=== PATIENT | female | born 1980 | race Caucasian/White ===

== ENCOUNTER 2018-06-15 16:47 | Emergency (ER) | payer OTHER ==
[2018-06-15 16:52] VITALS: BMI 32.3
--- NOTE | 2018-06-15 16:54 | PDOC ---
Rapid Medical Evaluation Time Seen by Provider: 06/15/18 16:48 Medical Evaluation: 06/15/18 16:48 I have performed a brief in-person evaluation of this patient. The patient presents with a chief complaint of: abdominal pain today. LMP last month, pt sent from L&D told them she was 7 months however pt is NOT . History of Bipolar and HTN. PT not compliant with medications. Pertinent physical exam findings:pt answering questions appropriately however dozing off during conversation. I have ordered the following:urine tox, UA, urine preg The patient will proceed to the ED for further evaluation.
[2018-06-15 17:23] LABS: URINE APPEARANCE CLEAR; URINE BILIRUBIN NEGATIVE (<2.0 mg/dL); URINE COLOR LTYELLOW; URINE GLUCOSE (UA) NEGATIVE (NEGATIVE); URINE KETONE NEGATIVE (NEGATIVE); URINE LEUK ESTERASE NEGATIVE (NEGATIVE); URINE NITRITE NEGATIVE (NEGATIVE); URINE PROTEIN NEGATIVE (NEGATIVE); URINE UROBILINOGEN NEGATIVE mg/dL (0.2-1.0)
[2018-06-15 17:32] LABS: HCG,QUALITATIVE URINE NEGATIVE
[2018-06-15 17:43] LABS: COCAINE, UR NEGATIVE ng/ml (CUTOFF=300); METHADONE, UR NEGATIVE ng/ml (CUTOFF=300); OPIATES, URI NEGATIVE ng/ml (CUTOFF=300); PHENCYCLIDINE,URINE NEGATIVE ng/ml (CUTOFF=25); URINE AMPHETAMINES NEGATIVE ng/ml (CUTOFF=500); URINE BARBITURATES NEGATIVE ng/ml (CUTOFF=200); URINE BENZODIAZEPINES NEGATIVE ng/ml (CUTOFF=200)
--- NOTE | 2018-06-15 19:36 | PDOC ---
History of Present Illness - General Chief Complaint: Pain Stated Complaint: abd pain Time Seen by Provider: 06/15/18 16:48 History Source: Patient - History of Present Illness Initial Comments: 06/15/18 19:58 37 year old female history of developmental delay and bipolar disorder came in c /o being with abdominal discomfort. patient is not . patient reports a epigastric discomfort for several days. Patient says that she has been having she has a bad dream where she reports that she is the mother of a child killed in the [place] by gang violence in [place]. " jordy was killed by a gang" denies SI, HI currently not on meds. Past History - Past Medical History Allergies/Adverse Reactions: Allergies Allergy/AdvReac Type Severity Reaction Status Date / Time No Known Allergies Allergy Verified 06/15/18 16:51 COPD: No CHF: No HTN: Yes Psychiatric Problems: Yes (bipolar) - Suicide/Smoking/Psychosocial Hx Smoking History: Never smoked Information on smoking cessation initiated: No Hx Alcohol Use: No Drug/Substance Use Hx: No Substance Use Type: None Review of Systems - Review of Systems Able to Perform ROS?: Yes Is the patient limited Frisian proficient: No Constitutional: No: Symptoms Reported, See HPI, Chills, Diaphoresis, Fever, Loss of Appetite, Malaise, Night Sweats, Weakness, Weight Stable, Unintentional Wgt. Loss, Unexplained wgt Loss, Other ABD/GI: Yes: Abdominal Distended. No: Symptoms Reported, See HPI, Abd. Pain w/ defecation, Blood Streaked Bowels, Constipated, Diarrhea, Difficulty Swallowing , Nausea, Poor Appetite, Poor Fluid Intake, Rectal Bleeding, Vomiting, Indigestion, Abdominal cramping, Tarry Stools, Other : No: Symptoms Reported, See HPI, Burning, Dysuria, Discharge, Frequency, Flank Pain, Hematuria, Incontinence, Pain, Urgency, Testicular Mass, Testicular Swelling, Lesions, Testicular Pain, Other *Physical Exam - Vital Signs Last Vital Signs Temp Pulse Resp BP Pulse Ox 98.4 F 75 17 120/76 100 06/15/18 16:50 06/15/18 16:50 06/15/18 16:50 06/15/18 16:50 06/15/18 16:50 - Physical Exam General Appearance: Yes: Appropriately Dressed Respiratory/Chest: positive: Lungs Clear ED Treatment Course - LABORATORY CBC & Chemistry Diagram: 06/15/18 20:32 06/15/18 20:32 - ADDITIONAL ORDERS Additional order review: Laboratory Results 06/15/18 06/15/18 16:54 16:54 Urine Color Ltyellow Urine Appearance Clear Urine pH 6.0 Ur Specific [place] 1.019 Urine Protein Negative Urine Glucose (UA) Negative Urine Ketones Negative Urine Blood Negative Urine Nitrite Negative Urine Bilirubin Negative Urine Urobilinogen Negative Ur Leukocyte Esterase Negative Urine HCG, Qual Negative Opiates Screen Negative Methadone Screen Negative Barbiturate Screen Negative Phencyclidine Screen Negative Ur Amphetamines Screen Negative MDMA (Ecstasy) Screen Negative Benzodiazepines Screen Negative Cocaine Screen Negative U Marijuana (THC) Screen Negative Medical Decision Making - Medical Decision Making I spoke to Natalia returned case inspector [phone] Maureen reports that patient has a baseline delusion of being . recently homeless for a year [address] non compliant with services and meds. patient currently lives with boyfriend in [place]. 06/15/18 8:00 called and left voicemail for Dr. bradshaw. 06/15/18 21:40 called [facility] transfer center for psychiatric consult. called Dr. Bradshaw left voicemail. 06/15/18 21:[address] Rodríguez at [facility] psych ER POS. will accept patient for transfer if no psych consult available in the ED at this time. 06/15/18 22:00 06/15/18 23:40 no call back from psych. will likely transfer to [facility] for psychiatric evaluation *DC/Admit/Observation/Transfer Diagnosis at time of Disposition: Acute psychosis - Referrals - Patient Instructions - Post Discharge Activity
[2018-06-15] MEDS ORDERED: MAG HYDROX/AL HYDROX/SIMETH 30 ML UNIT-DOSE CUP PO ONE (20:12)
[2018-06-15 21:05] LABS: BASO % 0.9 % (0-2.0); EOS % 2.2 % (0-4.5); HEMATOCRIT 41.1 % (32.4-45.2); HEMOGLOBIN 13.3 GM/dL (10.7-15.3); LYMPH % 31.1 % (8-40); MCH 28.8 pg (25.7-33.7); MCHC 32.2 g/dl (32.0-36.0); MEAN CELL VOLUME 89.4 fl (80-96); MONO % 6.9 % (3.8-10.2); NEUT % 58.9 % (42.8-82.8); PLATELET COUNT 322 K/MM3 (134-434); RDW 14.3 % (11.6-15.6); WHITE BLOOD COUNT 9.3 K/mm3 (4.0-10.0)
[2018-06-15] MEDS ORDERED: MAG HYDROX/AL HYDROX/SIMETH 30 ML UNIT-DOSE CUP ONE (21:14)
[2018-06-15 21:35] LABS: ALBUMIN 3.8 g/dl (3.4-5.0); ALK PHOS 160 U/L (45-117); ANION GAP 8 MMOL/L (8-16); BILIRUBIN,TOTAL 0.3 mg/dL (0.2-1); BLOOD UREA NITROGEN 11 mg/dL (7-18); CALCIUM 8.7 mg/dL (8.5-10.1); CHLORIDE 108 mmol/L (98-107); CO2 22 mmol/L (21-32); CREATININE 0.7 mg/dL (0.55-1.3); GLUCOSE,RANDOM 81 mg/dL (74-106); LIPASE 114 U/L (73-393); POTASSIUM 3.8 mmol/L (3.5-5.1); SGOT/AST 13 U/L (15-37); SGPT/ALT 19 U/L (13-61); SODIUM 138 mmol/L (136-145); TOT PROT 8.2 g/dl (6.4-8.2)
--- NOTE | 2018-06-16 05:20 | HP ---
CHIEF COMPLAINT: Abdominal pain, PCP: None HISTORY OF PRESENT ILLNESS: Pt is a poor historian, possible acute psychotic episode. Pt is a 37 y/o lady with a significant past medical history of Bipolar Disorder who presented initially to [facility] via EMS due to labor assessment. Pt reportedly informed EMS that she was 7 months and endorsed severe abdominal pain. Pt states pain began around 1 pm yesterday afternoon while she was at home. Pain is described as sharp, constant, and abrupt in onset. Pt endorses she ate a tuna fish sandwich before the pain began. Pt's boyfriend found pt on floor, hurled over crying and in pain, 911 was called. Endorses dizziness and headache with the pain. Pt further states that she has "20 kids". ED in correspondence with [facility] ED, will most likely transfer for complete psychiatric evaluation. ER course was notable for: (1) Negative Urine Drug Screen (2) Urine HCG negative (3) Recent Travel: Denies PAST MEDICAL HISTORY: Bipolar Disorder PAST SURGICAL HISTORY: 2 C-Sections Social History: Smoking: Denies Alcohol: Denies Drugs: Denies Family History: Allergies No Known Allergies Allergy (Verified 06/15/18 16:51) HOME MEDICATIONS: REVIEW OF SYSTEMS CONSTITUTIONAL: Absent: fever, chills, diaphoresis, generalized weakness, malaise, loss of appetite, weight change HEENT: Absent: rhinorrhea, nasal congestion, throat pain, throat swelling, difficulty swallowing, mouth swelling, ear pain, eye pain, visual changes CARDIOVASCULAR: Absent: chest pain, syncope, palpitations, irregular heart rate, lightheadedness , peripheral edema RESPIRATORY: Absent: cough, shortness of breath, dyspnea with exertion, orthopnea, wheezing, stridor, hemoptysis GASTROINTESTINAL: PRESENT: abdominal pain, abdominal distension, nausea, vomiting, GENITOURINARY: Absent: dysuria, frequency, urgency, hesitancy, hematuria, flank pain, genital pain MUSCULOSKELETAL: Absent: myalgia, arthralgia, joint swelling, back pain, neck pain SKIN: Absent: rash, itching, pallor HEMATOLOGIC/IMMUNOLOGIC: Absent: easy bleeding, easy bruising, lymphadenopathy, frequent infections ENDOCRINE: Absent: unexplained weight gain, unexplained weight loss, heat intolerance, cold intolerance NEUROLOGIC: Absent: headache, focal weakness or paresthesias, dizziness, unsteady gait, seizure, mental status changes, bladder or bowel incontinence PSYCHIATRIC: Absent: anxiety, depression, suicidal or homicidal ideation, hallucinations. PHYSICAL EXAMINATION Vital Signs - 24 hr 06/15/18 16:50 Temperature 98.4 F Pulse Rate 75 Respiratory 17 Rate Blood Pressure 120/76 O2 Sat by Pulse 100 Oximetry (%) GENERAL: Awake, Alert HEAD: NC/AT EYES: PERRLA, EOMI EARS, NOSE, THROAT: MMM NECK: Supple LUNGS: CTA B/L HEART: RRR No MRG S1 S2 ABDOMEN: ND, NT, No HSM, BS + throughout MUSCULOSKELETAL: Full ROM througout UPPER EXTREMITIES: No CCE LOWER EXTREMITIES: No CCE NEUROLOGICAL: CN 2-12 intact PSYCHIATRIC: H/o bipolar d/o, SKIN: no rashes or lesions appreciated Laboratory Results - last 24 hr 06/15/18 06/15/18 06/15/18 16:54 16:54 20:32 WBC 9.3 RBC 4.60 Hgb 13.3 Hct 41.1 MCV 89.4 MCH 28.8 MCHC 32.2 RDW 14.3 Plt Count 322 MPV 10.0 Absolute Neuts (auto) 5.5 Neutrophils % 58.9 Lymphocytes % 31.1 Monocytes % 6.9 Eosinophils % 2.2 Basophils % 0.9 Nucleated RBC % 0 Sodium Potassium Chloride Carbon Dioxide Anion Gap BUN Creatinine Creat Clearance w eGFR Random Glucose Calcium Total Bilirubin AST ALT Alkaline Phosphatase Total Protein Albumin Lipase TSH Urine Color Ltyellow Urine Appearance Clear Urine pH 6.0 Ur Specific [place] 1.019 Urine Protein Negative Urine Glucose (UA) Negative Urine Ketones Negative Urine Blood Negative Urine Nitrite Negative Urine Bilirubin Negative Urine Urobilinogen Negative Ur Leukocyte Esterase Negative Urine HCG, Qual Negative Opiates Screen Negative Methadone Screen Negative Barbiturate Screen Negative Phencyclidine Screen Negative Ur Amphetamines Screen Negative MDMA (Ecstasy) Screen Negative Benzodiazepines Screen Negative Cocaine Screen Negative U Marijuana (THC) Screen Negative 06/15/18 20:32 WBC RBC Hgb Hct MCV MCH MCHC RDW Plt Count MPV Absolute Neuts (auto) Neutrophils % Lymphocytes % Monocytes % Eosinophils % Basophils % Nucleated RBC % Sodium 138 Potassium 3.8 Chloride 108 H Carbon Dioxide 22 Anion Gap 8 BUN 11 Creatinine 0.7 Creat Clearance w eGFR > 60 Random Glucose 81 Calcium 8.7 Total Bilirubin 0.3 AST 13 L ALT 19 Alkaline Phosphatase 160 H Total Protein 8.2 Albumin 3.8 Lipase 114 TSH 1.24 Urine Color Urine Appearance Urine pH Ur Specific [place] Urine Protein Urine Glucose (UA) Urine Ketones Urine Blood Urine Nitrite Urine Bilirubin Urine Urobilinogen Ur Leukocyte Esterase Urine HCG, Qual Opiates Screen Methadone Screen Barbiturate Screen Phencyclidine Screen Ur Amphetamines Screen MDMA (Ecstasy) Screen Benzodiazepines Screen Cocaine Screen U Marijuana (THC) Screen ASSESSMENT/PLAN: Pt is a 37 y/o lady with a significant past medical history of Bipolar Disorder who presented initially to [facility] via EMS due to labor assessment. Pt reportedly informed EMS that she was 7 months and endorsed severe abdominal pain. #Abdominal Pain -Received Mylanta in ED -Protonix/ Zofran - Informed that she is not -Urine HCG Negative -Pt counseled on contraception and safe sex MR/Acute Psychosis -Possible transfer to [facility] for complete psychiatric evaluation -Psych Consult- Dr Leeann STOCK NS Monitor Electrolytes Regular Diet DVT ppx: Heparin SQ TID Dispo: Possible transfer to [facility] Visit type - Emergency Visit Emergency Visit: Yes Care time: The patient presented to the Emergency Department on the above date and was hospitalized for further evaluation of their emergent condition. - New Patient This patient is new to me today: Yes Date on this admission: 06/16/18 - Critical Care Critical Care patient: No
[2018-06-16 07:07] VITALS: TEMP 98
--- NOTE | 2018-06-16 08:02 | PDOC ---
*Physical Exam - Vital Signs Last Vital Signs Temp Pulse Resp BP Pulse Ox 98.0 F 71 17 118/71 100 06/16/18 07:06 06/16/18 07:06 06/16/18 07:06 06/16/18 07:06 06/16/18 07:06 ED Treatment Course - LABORATORY CBC & Chemistry Diagram: 06/16/18 08:33 06/16/18 08:33 - ADDITIONAL ORDERS Additional order review: Laboratory Results 06/15/18 20:32 Sodium 138 Potassium 3.8 Chloride 108 H Carbon Dioxide 22 Anion Gap 8 BUN 11 Creatinine 0.7 Creat Clearance w eGFR > 60 Random Glucose 81 Calcium 8.7 Total Bilirubin 0.3 AST 13 L ALT 19 Alkaline Phosphatase 160 H Total Protein 8.2 Albumin 3.8 Lipase 114 TSH 1.24 06/15/18 20:32 RBC 4.60 MCV 89.4 MCHC 32.2 RDW 14.3 MPV 10.0 Neutrophils % 58.9 Lymphocytes % 31.1 Monocytes % 6.9 Eosinophils % 2.2 Basophils % 0.9 - Medications Given in the ED: ED Medications Discontinued Medications Generic Name Dose Route Start Last Admin Trade Name Freq PRN Reason Stop Dose Admin Al Hydroxide/Mg Hydroxide 30 ml 06/15/18 20:12 06/15/18 21:19 Mylanta Oral Suspension - PO 06/15/18 20:13 30 ml ONCE ONE Administration Medical Decision Making - Medical Decision Making 06/16/18 08:00 Patient received from DONNIE Valle. Briefly, this is a 37-year-old female with a history of BPD (not currently on medications) presenting with delusions ( believes that she is , a long-standing delusion per her patient case manager) and that she is the mother of a child killed in gang violence earlier this year. She is currently calm and cooperative. She denies pain. She denies SI/HI. She is awaiting psychiatric evaluation. Attempt was made to transfer the patient to [facility], but this was declined. Messages left for psychiatrist airport tower controller, awaiting callback. 06/16/18 09:56 Discussed with psych consult, who will eval patient nawaf 11a-12p. 06/16/18 13:32 Patient evaluated by psychiatry; determined to be safe for discharge on Risperidone 1mg daily. Patient to follow up with psychiatry locally. Plan discussed with patient, boyfriend, and family who are all agreement with the plan. She remains calm, cooperative, and insightful. Return precautions reviewed. *DC/Admit/Observation/Transfer Diagnosis at time of Disposition: Acute psychosis - Discharge Dispostion Disposition: HOME Condition at time of disposition: Stable - Prescriptions Prescriptions: Risperidone 1 mg PO DAILY #30 tablet - Referrals - Patient Instructions Printed Discharge Instructions: DI for Bipolar Disorder Additional Instructions: -Start taking Risperidone as recommended by Dr. Bradshaw (prescription sent to -Follow up with a psychiatrist as soon as possible -Return to the emergency department for thoughts of harming yourself or others, or for any other concerning symptoms - Post Discharge Activity
--- NOTE | 2018-06-16 08:24 | PN ---
Teaching Attending Note Name of Resident: Americo Redd ATTENDING PHYSICIAN STATEMENT I saw and evaluated the patient. I reviewed the resident's note and discussed the case with the resident. I agree with the resident's findings and plan as documented. 37 y/o F presented to ED c/o abdominal paining and thinking she might be , concern for psychosis, however patient appears to have some mild- moderate MR and could have mistake the symptoms for the symptoms she had in .
[2018-06-16 08:51] LABS: BASO % 0.7 % (0-2.0); EOS % 2.3 % (0-4.5); HEMATOCRIT 37.1 % (32.4-45.2); HEMOGLOBIN 12.4 GM/dL (10.7-15.3); LYMPH % 28.2 % (8-40); MCH 29.6 pg (25.7-33.7); MCHC 33.4 g/dl (32.0-36.0); MEAN CELL VOLUME 88.6 fl (80-96); MEAN PLT VOLUME 9.7 fl (7.5-11.1); MONO % 7.6 % (3.8-10.2); NEUT % 61.2 % (42.8-82.8); PLATELET COUNT 271 K/MM3 (134-434); RBC 4.19 M/mm3 (3.60-5.2); WHITE BLOOD COUNT 7.4 K/mm3 (4.0-10.0)
[2018-06-16] MEDS ORDERED: PANTOPRAZOLE 20 MG TABLET (FP) PO ONE (09:00)
[2018-06-16] MEDS ORDERED: ONDANSETRON 4 MG TABLET PO ONE (09:01)
[2018-06-16 09:14] LABS: ANION GAP 5 MMOL/L (8-16); BLOOD UREA NITROGEN 11 mg/dL (7-18); CALCIUM 8.9 mg/dL (8.5-10.1); CHLORIDE 109 mmol/L (98-107); CO2 25 mmol/L (21-32); CREATININE 0.6 mg/dL (0.55-1.3); GLUCOSE,RANDOM 81 mg/dL (74-106); INR 1.05 (0.83-1.09); MAGNESIUM 2.4 mg/dL (1.8-2.4); POTASSIUM 3.8 mmol/L (3.5-5.1); PROTHROMBIN TIME (PATIENT) 12.4 SEC (9.7-13.0); SODIUM 139 mmol/L (136-145)
[2018-06-16] MEDS ORDERED: SODIUM CHLORIDE 1,000 ML IV SCH (09:15)
[2018-06-16 09:17] LABS: ACTIVATED PTT 29.6 SECONDS (25.2-36.5)
--- NOTE | 2018-06-16 11:53 | CON.PSY ---
Psychiatry Consult Chief Complaint: 37 year old female came to Er with Boyfriend for fosterring ongoing delusional thoughts that she is& months and is the mother of a child killed in the [place] a [place] ago. She has not displayed ang aggtressive or self damaging behaviour connected to her thoughtds. she is very pleasant, wanyts to go home eat and sleep. spoke to Her Boyfriend who seems to care for her. she is on the phone watching some thing and seemed very comforytable. she has agreed to take Psych medication. Symptoms: reports: Delusions - Previous Psychiatric Treatment Outpatient: None Inpatient: None - Previous Substance Abuse Treatment Outpatient: None Inpatient: None - Current Medications Current Medications: Active Medications Heparin Sodium (Porcine) (Heparin -) 5,000 unit SQ TID JOSE ANGEL Sodium Chloride (Normal Saline -) 1,000 mls @ 100 mls/hr IV ASDIR JOSE ANGEL - Allergies Allergies: Allergies Allergy/AdvReac Type Severity Reaction Status Date / Time No Known Allergies Allergy Verified 06/15/18 16:51 - Current Living Status Usual Living Arrangement: With Significant Other - Current Mental Status Evaluation Appearance: Well Groomed Attitude: Cooperative - Affect Affect: Full Range Appropriateness: Appropriate to Content - Mood Mood: Euthymic - Speech/Language Expressive: Coherent - Psychomotor Activity Psychomotor Activity: Normal - Thought Process Thought Process: [place] - Thought Content Hallucinations: Absent Type: Grandiose - Self Perception Self Perception: No Impairment - Cognition Attention: Alert Orientation: Time Memory, Short Term: 3/3 Memory, Remote with Promptin/3 - Concentration Serial Sevens Intact: No Simple Calculations Intact: Yes - Abstraction Proverb Interpretation: Intact Judgement: Minimally Impaired - Insight Insight: Impaired - Impulse Control Impulse Control: Good Control - Suicidal Ideation Suicidal Ideation: No - Homicidal Ideation Homicidal Ideation: No Assessment/Plan 1) risperdone 1mg po hs. @) family advised to seek Psych follow up. 30 dischrage when medically clear.
[2018-06-16] MEDS ORDERED: PANTOPRAZOLE 40 MG TABLET (FP) ONE (12:13)
[2018-06-16] MEDS ORDERED: ONDANSETRON 8 MG TABLET (FP) PO ONE (12:14)
[2018-06-16] MEDS ORDERED: risperiDONE 1 MG TABLET (FP) PO ONE (13:34)
[2018-06-16] MEDS ORDERED: risperiDONE 0.5 MG TABLET (FP) ONE (13:44)
[2018-06-16] MEDS ORDERED: HEPARIN NA (PORCINE) 5,000 UNITS/ML 1ML VIAL SQ SCH (14:00)
[2018-06-16 14:16] VITALS: BP 124/60; PULSE 61
== END 2018-06-16 14:05 | disposition short-term general hospital (02) ==
LOC: JER 16:47
DX: F23 Brief psychotic disorder (principal); F31.9 Bipolar disorder, unspecified; I10 Essential (primary) hypertension; R62.50 Unspecified lack of expected normal physiological development in childhood
CPT/HCPCS: 36415; 80048; 80053; 80307; 81003; 83690; 83735; 84100; 84443; 84703; 85025; 85610; 85730; 99284-25; J2794

== ENCOUNTER 2018-12-25 21:43 | Emergency (ER) | payer OTHER ==
--- NOTE | 2018-12-25 22:11 | PDOC ---
History of Present Illness - General Chief Complaint: Cold Symptoms Stated Complaint: CHEST PAIN Time Seen by Provider: 12/25/18 21:50 History Source: Patient Exam Limitations: Other (poor historian) - History of Present Illness Initial Comments: 12/25/18 22:08 *Pt is poor historian Pt is a 38yo F with PMH of Bipolar Disorder BIBA for chest pain, cough and congestion. Pt states symptoms started yesterday. She has been having pain in the upper part of her chest near the neck with cough productive of white sputum and nasal congestion. She states it is hard for her to talk. Reports subjective fevers. Denies headache, abdominal pain, n/v/d, back pain, sore throat, earache , weakness. Denies SI/HI and auditory/visual hallucinations. Not on any psych meds because she does not have insurance. PMD: none PMH: see hpi PSH: Meds: none Allergies: nkda Past History - Past Medical History Allergies/Adverse Reactions: Allergies Allergy/AdvReac Type Severity Reaction Status Date / Time No Known Allergies Allergy Verified 12/25/18 22:02 Home Medications: Ambulatory Orders Risperidone 1 mg PO DAILY #30 tablet 06/16/18 COPD: No CHF: No HTN: Yes Psychiatric Problems: Yes (bipolar) - Suicide/Smoking/Psychosocial Hx Smoking History: Never smoked Have you smoked in the past 12 months: No Information on smoking cessation initiated: No Hx Alcohol Use: Yes (Social) Drug/Substance Use Hx: No Substance Use Type: None Review of Systems - Review of Systems Constitutional: Yes: Fever. No: Chills HEENTM: Yes: Nose Congestion. No: Eye Pain, Tearing, Ear Pain, Nose Pain, Throat Pain Respiratory: Yes: Cough. No: Shortness of Breath, Hemoptysis Cardiac (ROS): Yes: See HPI, Chest Tightness. No: Chest Pain, Lightheadedness, Palpitations, Syncope ABD/GI: No: Constipated, Diarrhea, Nausea, Vomiting : No: Burning, Dysuria Musculoskeletal: No: Back Pain, Joint Pain, Muscle Pain Integumentary: No: Rash Neurological: No: Headache, Numbness, Tingling *Physical Exam - Vital Signs Last Vital Signs Temp Pulse Resp BP Pulse Ox 97.7 F 82 18 136/85 97 12/25/18 21:43 12/25/18 21:43 12/25/18 21:43 12/25/18 21:43 12/25/18 21:43 - Physical Exam General Appearance: Yes: Nourished, Appropriately Dressed. No: Apparent Distress HEENT: positive: EOMI, QUENTIN, TMs Normal, Pharynx Normal. negative: Sinus Tenderness Neck: positive: Trachea midline, Supple. negative: Lymphadenopathy (R), Lymphadenopathy (L) Respiratory/Chest: positive: Lungs Clear, Normal Breath Sounds. negative: Rhonchi, Wheezing Cardiovascular: positive: Regular Rhythm, Regular Rate, S1, S2. negative: Edema , JVD, Murmur Vascular Pulses: Carotid (R): 2+, Carotid (L): 2+, Dorsalis-Pedis (R): 2+, Doralis-Pedis (L): 2+ Gastrointestinal/Abdominal: positive: Normal Bowel Sounds, Soft. negative: Tender Musculoskeletal: negative: CVA Tenderness Extremity: positive: Normal Capillary Refill. negative: Swelling, Calf Tenderness Integumentary: positive: Normal Color, Dry, Warm Neurologic: positive: oil well services superintendent II-XII NML intact, Fully Oriented, Alert, Normal Mood/ Affect, Normal Response, Motor Strength 5/5 Medical Decision Making - Medical Decision Making 12/25/18 22:11 Pt is a 38yo F with PMH of Bipolar Disorder BIBA for chest pain, cough and congestion. Pt states symptoms started yesterday. She has been having pain in the upper part of her chest near the neck with cough productive of white sputum and nasal congestion. She states it is hard for her to talk. Reports subjective fevers. Denies headache, abdominal pain, n/v/d, back pain, sore throat, earache , weakness. Vitals: wnl PE: odd affect. lungs cta, no sinus tenderness. normal HEENT Ddx includes but not limited to viral uri, bronchitis, pna, acs, pe PERC negative, low suspicion for ACS given history. most likely viral uri -tylenol, mucinex Pt has capacity. Is not on meds but is not in manic or depressive state. Has at bedside who corroborates story. Pt is AOx3. Low suspicion for pna. Pt safe for dc home. given return precautions. Pt verbalizes understanding. 12/25/18 22:37 *DC/Admit/Observation/Transfer Diagnosis at time of Disposition: Congestion of upper airway, Cough - Discharge Dispostion Disposition: HOME Condition at time of disposition: Improved Decision to Admit order: No - Referrals - Patient Instructions Printed Discharge Instructions: DI for Viral Upper Respiratory Infection -- Adult Additional Instructions: You were seen in the emergency room today for congestion, cough and chest pain. This seems to be due to a cold or an upper respiratory infection. You can take Tylenol or ibuprofen for the pain as needed. You can also take some decongestants which can be found in most pharmacies. Please come back to the emergency room if you have worsening pain, you have difficulty breathing, the phlegm changes color, you have fevers or if any new concerning symptom develops. Thank you - Post Discharge Activity
--- NOTE | 2018-12-25 22:19 | PDOC ---
Attending Attestation - Resident Resident Name: Joelle Ansari - ED Attending Attestation I have performed the following: I have examined & evaluated the patient, The case was reviewed & discussed with the resident, I agree w/resident's findings & plan, Exceptions are as noted - HPI HPI: 12/25/18 22:18 38y F hx of bipolar disorder presents with complaint of cough productiv efo whitish sputum, congestion, and chest tightness for 2 days. Denes any mueller, hemoptysis, leg swelling, back pain, abd pain. no recent travel or sick contacts. - Physicial Exam PE: 12/25/18 22:29 on exam: general: pt well appearing, no distress chest: clear to ascultation, no respiratory distress Card: rrr, no mrg abd soft nontender, no cva tenderness ext: no calf tenderness, no swelling, neg homans - Medical Decision Making 12/25/18 22:29 suspect URI supportive care at home rturn precaution were discussed Heart Score/ECG Review - ECG Impressions Comment:: 12/26/18 00:35 Twelve-lead EKG was performed and reviewed by me. There is normal sinus rhythm with a rate of 56 The axis is normal. The intervals are normal. There is normal R wave progression There are no ST or T wave abnormalities. Impression: sinus bradycardia
[2018-12-25] MEDS ORDERED: ACETAMINOPHEN 500 MG TABLET (FP) PO ONE (22:23)
[2018-12-25] MEDS ORDERED: guaiFENesin 600 MG TABLET.ER (FP) PO STA (22:27)
[2018-12-25] MEDS ORDERED: ACETAMINOPHEN 325 MG TABLET (FP) ONE (22:30)
[2018-12-26 00:01] VITALS: BP 136/85; PULSE 82; TEMP 97.7; BMI 23.3
== END 2018-12-25 23:11 | disposition home or self-care (01) ==
LOC: JER 21:43
DX: J06.9 Acute upper respiratory infection, unspecified (principal); B97.89 Other viral agents as the cause of diseases classified elsewhere; I10 Essential (primary) hypertension; F31.9 Bipolar disorder, unspecified
CPT/HCPCS: 99281-25